=== PATIENT | female | born 1980 | race Caucasian/White ===

== ENCOUNTER 2017-08-11 13:18 | Emergency (ER) | payer OTHER ==
[~2017-08-11] VITALS: Ht 165.1 cm; Wt 74.8 kg
[2017-08-11 13:22] VITALS: TEMP 36.8; Ht 165.1 cm; Wt 74.8 kg
--- NOTE | 2017-08-11 14:00 | DIAGNOSTIC IMAGING REPORT ---
SINGLE VIEW CHEST CLINICAL HISTORY: Atypical chest pain. FINDINGS: An AP, portable, upright chest radiograph is obtained. No prior studies are available for comparison at the time of dictation. The examination is degraded by portable technique and patient rotation. The cardiomediastinal silhouette is unremarkable. The lungs and pleural spaces are clear. No pneumothorax is seen. The bony thorax is grossly intact. IMPRESSION: No active disease in the chest. Electronically signed by: Orlin David M.D. 08/11/2017 1:59 PM Dictated Date/Time: 08/11/2017 1:59 PM
[2017-08-11 14:11] VITALS: O2SAT 96
[2017-08-11 14:20] LABS: BASO % 0.2 %; BASO ABS # 0.02 K/uL (0-0.2); COMPLETE YES; EOS % 0.2 %; HEMATOCRIT 40.9 % (37-47); IG% 0.1 %; LYMPH % 35.1 %; LYMPH ABS # 2.92 K/uL (1.2-3.4); MEAN CELL VOLUME 88.1 fL (80-100); MEAN CORPUSCULAR HEMOGLOBIN 30.8 pg (25-34); MEAN PLATELET VOLUME 10.1 fL (7.4-10.4); MONO % 7.2 %; NEUT % 57.2 %; PLATELET COUNT 411 K/uL (130-400); RED BLOOD COUNT 4.64 M/uL (4.2-5.4); WHITE BLOOD COUNT 8.32 K/uL (4.8-10.8)
[2017-08-11 14:27] LABS: POINT OF CARE TROPONIN I < 0.030 ng/ml (0-0.045)
[2017-08-11 14:29] LABS: INR 0.9 (0.9-1.1); PROTHROMBIN TIME (PATIENT) 10.1 SECONDS (9.0-12.0)
[2017-08-11 14:36] LABS: ALT/SGPT 24 U/L (12-78); BLOOD UREA NITROGEN 15 mg/dl (7-18); BUN/CREATININE RATIO 16.3 (10-20); CARBON DIOXIDE 25 mmol/L (21-32); CHLORIDE 102 mmol/L (98-107); CREATININE 0.89 mg/dl (0.60-1.20); GLUCOSE 92 mg/dl (70-99); POTASSIUM 3.8 mmol/L (3.5-5.1); SODIUM 137 mmol/L (136-145)
[2017-08-11 14:42] LABS: ALKALINE PHOSPHATASE 56 U/L (45-117); AST/SGOT 14 U/L (15-37); CKMB/CK RATIO 1.7 (0-3.0)
[2017-08-11 14:50] LABS: PREG INTERNAL NEGATIVE QC NEG CLEAR BACKGROUND; PREG INTERNAL POSITIVE QC POS CONTROL LINE
--- NOTE | 2017-08-11 15:23 | DIAGNOSTIC IMAGING REPORT ---
CHEST CT WITH CONTRAST CT DOSE: 246.74 mGy.cm HISTORY: Acute substernal chest pain with vomiting substernal pain, s/p vomiting, please give oral contrast TECHNIQUE: Multiaxial CT images of the chest were performed following the intravenous administration of contrast. A dose lowering technique was utilized adhering to the principles of ALARA. COMPARISON: Chest radiograph 08/11/2017. FINDINGS: Low attenuating 6 mm inferior right thyroid nodule noted. The right thyroid lobe is asymmetrically enlarged compared to the left. No pathologic adenopathy about the chest identified. Aberrant right subclavian artery is noted within a retroesophageal course. This causes moderate mass effect upon the adjacent esophagus nicely seen on image 49 series 4. No pathologic adenopathy about the chest identified. Mild dependent bibasilar atelectasis. No pneumothorax, pleural effusion or focal airspace consolidation. The airways are patent. Low attenuating 6 mm lesion of the lateral left hepatic lobe suggests cyst. No acute upper abdominal abnormality identified. Soft tissues are unremarkable. The bones appear intact without fracture identified. IMPRESSION: 1. No acute intrathoracic abnormality identified. 2. Aberrant right subclavian artery causes moderate mass effect upon the adjacent esophagus. In a patient with reported substernal chest pain, correlate clinically to exclude dysphasia [place]. 3. No focal airspace consolidation or pleural effusion. Electronically signed by: Jacek Higgins M.D. 08/11/2017 3:22 PM Dictated Date/Time: 08/11/2017 3:10 PM
[2017-08-11 16:17] VITALS: BP 119/94; PULSE 87; O2SAT 97
--- NOTE | 2017-08-11 17:57 | EMERGENCY ROOM VISIT NOTE ---
History Report prepared by Courtney: Aristeo Mohamud Under the Supervision of: Dr. Humberto Alcantar M.D. First contact with patient: 13:30 Chief Complaint: CHEST PAIN Stated Complaint: CHEST PAIN History of Present Illness The patient is a 37 year old female who presents to the Emergency Room with complaints of sudden and persistent chest pain under her breast bone that began at 1000. The patient rates her discomfort as a 4/10 in severity. She states that she felt nauseous and vomited red wine this morning and then went to work. The patient noted the pain in the middle of her chest became worse at work, prior to lunch, and that she had difficulty breathing. The patient state the pain does not radiate anywhere. The patient denies previous episodes of this chest pain or recent travel as well as no pertinent personal or family history of heart disease and lung disease. Pt denies LOC, headache, fevers, chills, diaphoresis, visual changes, neck pain, abdominal pain, back pain, melena, hematochezia, urinary symptoms, numbness, weakness, lymphadenopathy, rash, or other complaints. Source of History: patient Onset: 1000 Position: chest (under her breast bone) Symptom Intensity: 4/10 Timing: other (persistent) Note: Associated symptoms: breathing difficulties Review of Systems See HPI for pertinent positives and negatives. A total of ten systems were reviewed and were otherwise negative. Past Medical & Surgical Medical Problems: (1) No Known Active Medical Problems Family History Heart disease Lung disease Social History Smoking Status: Never Smoker Smokeless Tobacco Use: No Alcohol Use: occasionally Marital Status: Housing Status: lives with significant other Occupation Status: employed Current/Historical Medications No Active Prescriptions or Reported Meds Allergies Coded Allergies: No Known Allergies (Unverified , 08/11/17) Physical Exam Vital Signs Date Time Temp Pulse Resp B/P (MAP) Pulse Ox O2 Delivery O2 Flow Rate FiO2 08/11/17 16:17 87 20 119/94 97 08/11/17 15:29 89 20 160/95 98 Room Air 08/11/17 14:11 96 Room Air 08/11/17 14:10 96 Room Air 08/11/17 14:09 96 08/11/17 14:00 97 Room Air 08/11/17 13:22 36.8 103 17 162/128 95 Room Air Physical Exam GENERAL: Awake, alert, well-appearing, in no distress HENT: Normocephalic, atraumatic. Oropharynx unremarkable. EYES: Normal conjunctiva. Sclera non-icteric. NECK: Supple. No nuchal rigidity. FROM. No JVD. RESPIRATORY: Clear to auscultation. CARDIAC: Tachycardic rate, normal rhythm. Extremities warm and well perfused. Pulses equal. ABDOMEN: Soft, non-distended. No tenderness to palpation. No rebound or guarding. No masses. RECTAL: Deferred. MUSCULOSKELETAL: Chest examination reveals sternal tenderness on left side. The back is symmetrical on inspection without obvious abnormality. There is no CVA tenderness to palpation. No joint edema. LOWER EXTREMITIES: Calves are equal size bilaterally and non-tender. No edema. No discoloration. NEURO: Normal sensorium. No sensory or motor deficits noted. SKIN: No rash or jaundice noted. Medical Decision & Procedures ER Provider Diagnostic Interpretation: X-ray: Per my interpretation, radiologist review. SINGLE VIEW CHEST CLINICAL HISTORY: Atypical chest pain. FINDINGS: An AP, portable, upright chest radiograph is obtained. No prior studies are available for comparison at the time of dictation. The examination is degraded by portable technique and patient rotation. The cardiomediastinal silhouette is unremarkable. The lungs and pleural spaces are clear. No pneumothorax is seen. The bony thorax is grossly intact. IMPRESSION: No active disease in the chest. Electronically signed by: Orlin David M.D. 08/11/2017 1:59 PM Dictated Date/Time: 08/11/2017 1:59 PM Laboratory Results 08/11/17 14:00 Red Blood Count 4.64, Mean Corpuscular Volume 88.1, Mean Corpuscular Hemoglobin 30.8, Mean Corpuscular Hemoglobin Concent 35.0, Mean Platelet Volume 10.1, Neutrophils (%) (Auto) 57.2, Lymphocytes (%) (Auto) 35.1, Monocytes (%) (Auto) 7.2, Eosinophils (%) (Auto) 0.2, Basophils (%) (Auto) 0.2, Neutrophils # (Auto) 4.75, Lymphocytes # (Auto) 2.92, Monocytes # (Auto) 0.60, Eosinophils # (Auto) 0.02, Basophils # (Auto) 0.02 08/11/17 14:00 Test 08/11/17 14:00 08/11/17 14:07 08/11/17 15:42 White Blood Count 8.32 K/uL (4.8-10.8) Red Blood Count 4.64 M/uL (4.2-5.4) Hemoglobin 14.3 g/dL (12.0-16.0) Hematocrit 40.9 % (37-47) Mean Corpuscular Volume 88.1 fL (80-100) Mean Corpuscular Hemoglobin 30.8 pg (25-34) Mean Corpuscular Hemoglobin Concent 35.0 g/dl (32-36) Platelet Count 411 K/uL (130-400) Mean Platelet Volume 10.1 fL (7.4-10.4) Neutrophils (%) (Auto) 57.2 % Lymphocytes (%) (Auto) 35.1 % Monocytes (%) (Auto) 7.2 % Eosinophils (%) (Auto) 0.2 % Basophils (%) (Auto) 0.2 % Neutrophils # (Auto) 4.75 K/uL (1.4-6.5) Lymphocytes # (Auto) 2.92 K/uL (1.2-3.4) Monocytes # (Auto) 0.60 K/uL (0.11-0.59) Eosinophils # (Auto) 0.02 K/uL (0-0.5) Basophils # (Auto) 0.02 K/uL (0-0.2) RDW Standard Deviation 38.5 fL (36.4-46.3) RDW Coefficient of Variation 12.0 % (11.5-14.5) Immature Granulocyte % (Auto) 0.1 % Immature Granulocyte # (Auto) 0.01 K/uL (0.00-0.02) Prothrombin Time 10.1 SECONDS (9.0-12.0) Prothromb Time International Ratio 0.9 (0.9-1.1) Activated Partial Thromboplast Time 25.0 SECONDS (21.0-31.0) Partial Thromboplastin Ratio 1.0 Anion Gap 10.0 mmol/L (3-11) Est Creatinine Clear Calc Drug Dose 87.6 ml/min Estimated GFR () 96.0 Estimated GFR (Non- 82.8 BUN/Creatinine Ratio 16.3 (10-20) Calcium Level 9.0 mg/dl (8.5-10.1) Total Bilirubin 0.3 mg/dl (0.2-1) Direct Bilirubin < 0.1 mg/dl (0-0.2) Aspartate Amino Transf (AST/SGOT) 14 U/L (15-37) Alanine Aminotransferase (ALT/SGPT) 24 U/L (12-78) Alkaline Phosphatase 56 U/L (45-117) Total Creatine Kinase 86 U/L (26-192) Creatine Kinase MB 1.5 ng/ml (0.5-3.6) Creatine Kinase MB Ratio 1.7 (0-3.0) Total Protein 8.2 gm/dl (6.4-8.2) Albumin 4.1 gm/dl (3.4-5.0) Lipase 148 U/L (73-393) Human Chorionic Gonadotropin, Qual NEG (NEG) Bedside D-Dimer 254 ng/mlFEU (0-450) Bedside Troponin I < 0.030 ng/ml (0-0.045) Laboratory results reviewed by me ECG Indication: chest pain Rate (beats per minute): 100 Rhythm: normal sinus Findings: no acute ischemic change, no ectopy, other (No pericarditis) ED Course 1330: The patient was evaluated in room B10. A complete history and physical exam was performed. 1441: I reevaluated the patient and she is resting comfortably. I discussed the exam findings with her and I discussed the treatment plan. She verbalized complete understanding and agreement. She will have a CT scan. 1530: The patient feels well. A repeat troponin will be performed. If negative she will be discharged. She notes already feeling better without any intervention. Medical Decision Triage Nursing notes reviewed. The patient's presentation and history were concerning for chest pain and vomiting. Etiologies such as gastrointestinal, esophageal rupture, cardiac ischemia, aortic dissection, pulmonary embolism, pneumonia, pneumothorax, musculoskeletal , infections, as well as others were entertained. The patient was evaluated. Clinically she looked well. She declined analgesia. ECG was nonischemic. Chest x-ray was unremarkable. The patient's blood work was negative. Troponin was 0. D-dimer negative. She underwent CT imaging of the chest with oral contrast added as well and the patient had no acute findings noted. No esophageal rupture. No mediastinal free air or signs of mediastinitis. A repeat troponin was ordered. The patient is doing very well this time your symptoms resolve. She did have some heavy vomiting earlier today after drinking alcohol last night. This may be esophageal spasm, reflux, esophageal irritation or even some gastritis. As her lab testing is negative and she feels much better I discussed conservative management. The patient will follow-up with a primary physician as she does not have one right now. She will seek care with the [facility] services. If she worsens in any way she will be back to the Emergency Room.I gave my usual and customary discussion regarding this issue. By the evaluation outlined above other emergent etiologies such as those listed in the differential, as well as others, were deemed relatively unlikely. The patient was educated about the findings as listed above. All questions were answered and the patient was pleased with the treatment. Return instructions were outlined and the patient was discharged in stable condition. The patient was referred to [facility] for follow-up for a recheck of the current condition. Impression Primary Impression: Substernal precordial chest pain Scribe Attestation The scribe's documentation has been prepared under my direction and personally reviewed by me in its entirety. I confirm that the note above accurately reflects all work, treatment, procedures, and medical decision making performed by me. Departure Information Prescriptions No Active Prescriptions or Reported Meds Referrals No Doctor, Assigned (PCP) Patient Instructions My [facility] Additional Instructions CHEST PAIN INSTRUCTIONS: Avoid alcohol. Taken [id number] Zantac or Prilosec as directed on the box for the next 3- 5 days. Acetaminophen(Tylenol) may be used for fever or pain. Use 1000mg every six hours as needed. Avoid using more than 4000mg in a 24 hour period. Rest and drink plenty of fluids as tolerated. Continue current medications. Avoid strenuous activities and anything that worsens your pain. Resume normal activities once your symptoms resolve. Return to the ER immediately for worsening or persistent chest pain, abdominal pain, vomiting, fevers, chest pains, difficulty breathing, worsening of your condition, or as needed. Follow up a [facility] primary physician in 2-3 days for a recheck of your current condition as discussed.
== END 2017-08-11 16:19 | disposition home or self-care (01) ==
LOC: C.EDB 13:20
DX: R07.2 Precordial pain (principal)